=== PATIENT | female | born 1985 | race Caucasian/White ===

== ENCOUNTER 2020-11-08 11:37 | Emergency (ER) | payer OTHER, SELFPAY ==
[2020-11-08 11:46] VITALS: BP 115/78; PULSE 110; RESP 18; TEMP 36.7; O2SAT 96
--- NOTE | 2020-11-08 11:52 | W.ED.GENAD ---
Discharge Plan Disposition Patient Disposition: HOME Condition: Improving Discharge Details Clinical Impression: Pyelonephritis Primary Care Provider: None,None ED Provider: Zarina Mirza Home Meds and New Rx's Prescriptions: New cephalexin [Keflex] 500 mg capsule 500 mg PO BID 10 Days Qty: 20 RF: 0 Discharge Instructions Instructions: Urinary Tract Infection in Women (ED) Additional Instructions: Drink plenty of fluids and get plenty of rest. Take the antibiotics until finished. Follow-up with your primary care doctor in 1 week. Return to the emergency department with any worsening or new concerning symptoms. Stand Alone Forms: Work Release Discharge Data Discharge Date/Time-TO BE ENTERED AT DEPARTURE: 11/08/20 14:34 Discharge Physician: Zarina Mirza Medical Decision Making 35-year-old female with UTI symptoms for the past few days and right lower quadrant abdominal pain today. Urinalysis obtained on arrival and is positive for nitrites, few bacteria, 5-10 WBCs but many epithelial cells and appears contaminated. Will obtain another sample. Differential diagnosis includes UTI, pyelonephritis, kidney stone, ovarian cyst. Will place an IV, bolus IV fluids, screening labs, CT renal colic and give a dose of Toradol and Zofran and reassess. Labs and imaging reviewed. White blood cell count elevated at 17. Mild elevation of LFTs, may be due to daily alcohol use. Lipase negative. CT reviewed and notes mild dilatation of the right collecting system and right ureter. The right kidney is edematous Mild Carmen ureteral stranding However no ureteral calculus. The findings could be due to a recently passed stone, a noncalcified stone or clot or soft tissue process in the right ureter, or an infectious/inflammatory process of the right collecting system. Presentation appears most likely consistent with pyelonephritis. Patient reassessed and she feels much better. She was given a dose of Keflex here and prescription for home. Advised to follow up with the primary care doctor for re-evaluation. Usual and customary return precautions given prior to discharge. Medical Records Medical records reviewed: Yes I reviewed the patient's medical records. Imaging Data Radiologic Study: Radiologist's impression: CT Abdomen And Pelvis Without Contrast Exam date and time: 11/08/2020 1:28 PM Age: 35 years old Clinical indication: Abdominal pain; Acute; Patient HX: Rlq abd pain, R/O kidney stone, pyelonephritis TECHNIQUE: Imaging protocol: Computed tomography of the abdomen and pelvis without contrast. Radiation optimization: All CT scans at this facility use at least one of these dose optimization techniques: automated exposure control; mA and/or kV adjustment per patient size (includes targeted exams where dose is matched to clinical indication); or iterative reconstruction. COMPARISON: No relevant prior studies available. FINDINGS: Lungs: Right basilar atelectasis Liver: Normal. No mass. Gallbladder and bile ducts: Normal. No calcified stones. No ductal dilation. Pancreas: Normal. No ductal dilation. Spleen: Normal. No splenomegaly. Adrenal glands: Normal. No mass. Kidneys and ureters: There is mild dilatation of the right collecting system and right ureter. The right kidney is edematous Mild Carmen ureteral stranding However no ureteral calculus.. Stomach and bowel: Unremarkable. No obstruction. No mucosal thickening. Appendix: No evidence of appendicitis. Intraperitoneal space: Mild amount of free fluid in the pelvis Vasculature: Unremarkable. No abdominal aortic aneurysm. Lymph nodes: Unremarkable. No enlarged lymph nodes. Urinary bladder: Unremarkable as visualized. Reproductive: Unremarkable as visualized. Bones/joints: Unremarkable. No acute fracture. Soft tissues: Unremarkable. IMPRESSION: There is mild dilatation of the right collecting system and right ureter. The right kidney is edematous Mild Carmen ureteral stranding However no ureteral calculus. The findings could be due to a recently passed stone, a noncalcified stone or clot or soft tissue process in the right ureter, or an infectious/inflammatory process of the right collecting system. Lab Data Lab results reviewed: Yes I reviewed the patient's lab results. Labs: 11/08/20 12:10 Urine - Reflex from Ua Urine Culture - Preliminary Escherichia coli Laboratory Tests Range/Units 11/08/20 11/08/20 11/08/20 12:10 12:25 12:25 WBC (4.4-10.8) 10^3/uL 17.12 H RBC (3.93-5.22) 10^6/uL 4.78 Hgb (11.2-15.7) g/dL 14.7 Hct (36.0-46.0) % 43.7 MCV (80-95) fL 91.4 MCH (27.0-33.0) pg 30.8 MCHC (32.0-36.0) % 33.6 RDW (11.7-14.6) % 13.2 Plt Count (130-400) 10^3/uL 390 MPV (8.0-11.0) fL 9.2 Immature Gran % 0.5 Neutrophils % 87.5 Lymphocytes % 6.7 Monocytes % 5.0 Eosinophils % 0.1 Basophils % 0.2 Nucleated RBC % % 0 Absolute Neutrophils (1.2-6.7) 10^3/uL 14.98 H Absolute Lymphocytes (1.2-3.4) 10^3/uL 1.15 L Absolute Monocytes (0.1-0.8) 10^3/uL 0.86 H Absolute Eosinophils (0.0-0.7) 10^3/uL 0.02 Absolute Basophils (0.0-0.2) 10^3/uL 0.03 Sodium (136-145) mmol/L 132 L Potassium (3.5-5.1) mmol/L 3.5 Chloride (98-107) mmol/L 97 L Carbon Dioxide (21.0-32.0) mmol/L 24.3 Anion Gap (3-11) mmol/L 10.7 BUN (7-18) mg/dL 10 Creatinine (0.55-1.02) mg/dL 0.9 Estimated GFR/1.73 m2 (mL/min/1.73m2) >= 60.00 Glucose (74-106) mg/dL 96 Calcium (8.5-10.1) mg/dL 9.2 Total Bilirubin (0.2-1.0) mg/dL 0.9 AST (15-37) U/L 53 H ALT (14-59) U/L 74 H Alkaline Phosphatase (46-116) U/L 155 H Total Protein (6.4-8.2) g/dL 8.4 H Albumin (3.4-5.0) g/dL 4.0 Urine Color (Yellow) Yellow Urine Clarity (Clear) Sl cloudy Urine pH (5-8) 6.0 Ur Specific [place] (1.005-1.025) 1.020 Urine Protein (Negative) mg/dL 100 H Urine Ketones (Negative) mg/dL 80 H Urine Blood (Negative) Moderate H Urine Nitrite (Negative) Positive H Urine Bilirubin (Negative) Negative Urine Urobilinogen (Up TO 0.2) EU/dL 1.0 H Ur Leukocyte Esterase (Negative) Moderate H Urine RBC (0-2) HPF 10-20 H Urine WBC (0-5) HPF 10-20 H Ur Epithelial Cells (Negative) HPF Few Urine Crystals (Negative) HPF Negative Urine Bacteria (Negative) HPF Many Urine Casts (Negative) LPF Negative Urine Mucus (Negative) Trace Urine Other (Negative) Negative Ur Culture Indicated? Yes Urine Glucose (Negative) mg/dL Negative HPI General Mode of arrival: ambulatory. Date/Time Provider Initiated Documentation: 11/08/20 11:38. Limitations to Documentation: no limitations. Information obtained by: patient. HPI Narrative: Patient is a 35-year-old female with a history of appendectomy who presents for UTI symptoms for the past few days and right lower quadrant abdominal pain today. Patient states she has had dysuria, urinary frequency, urgency for the past few days for which she used Monistat at home without relief and then developed intermittent sharp right lower quadrant abdominal pain today. She states the pain at worst is 5/10. She admits to nausea and vomiting x1 today. She denies any known fever, chills or back pain. She denies any chance of at this time. She denies any vaginal discharge. Related Data Home Medications Medication Instructions Recorded Confirmed cephalexin [Keflex] 500 mg PO BID 10 Days #20 cap 11/08/20 Previous Rx's Medication Instructions Recorded cephalexin [Keflex] 500 mg PO BID 10 Days #20 cap 11/08/20 Allergies Allergy/AdvReac Type Severity Reaction Status Date / Time No Known Allergies Allergy Unverified 11/08/20 11:53 General Stated Complaint: Abd Prob POLO: 3 Review of Systems All systems reviewed & are unremarkable except as noted in HPI and below Constitutional Constitutional: Reports as per HPI, Denies chills and Denies fever(s) Eyes Eyes: Denies blurry vision ENT Ears, Nose, Mouth, and Throat: Denies dizziness, Denies sore throat and Denies throat swelling Cardiovascular Cardiovascular: Denies chest pain and Denies dyspnea Respiratory Respiratory: Denies cough and Denies dyspnea Gastrointestinal Gastrointestinal: Reports abdominal pain, Denies diarrhea and Denies vomiting Genitourinary Genitourinary: Denies hematuria and Denies dysuria Musculoskeletal Musculoskeletal: Denies back pain and Denies numbness Integumentary/Breasts Skin/Breast: Denies lesions and Denies rash Neurologic Neurologic: Denies dizziness, Denies localized weakness and Denies numbness Allergic/Immunologic Allergic/Immunologic: Denies throat swelling [facility] Medical History (Updated 11/08/20 @ 14:26 by Zarina Mirza DO) No significant past medical history Surgical History (Updated 11/08/20 @ 13:05 by Zarina Mirza DO) History of appendectomy Social History Smoking/Tobacco Use Status: Current every day Smoking risk assessment performed?: Yes Alcohol Intake: current Alcohol Intake frequency: 3 or more drinks per day Drug use: Occasionally Substance use type: marijuana Do you feel safe at home: Yes Exam Const General: cooperative, healthy appearing and no acute distress HENMT Head: normal to inspection Face and sinus: normal facial exam Eyes General: appearance normal, both eyes and all related structures EOM: EOM intact bilaterally Neck Neck: normal visual inspection and No submandibular swelling Lymphatic: no lymphadenopathy noted Chest Chest: normal inspection of the chest and no tenderness Resp Effort & Inspection: normal respiratory effort and able to speak in complete sentences Auscultation: clear to auscultation bilaterally Cardio Rate: regular rate Rhythm: regular rhythm GI Inspection: normal to inspection and obesity Palpation: soft, not firm, not rigid and tender in the LLQ, in the RLQ and suprapubicly Auscultation: normal bowel sounds Back/Spine/Pelvis Back: no CVA tenderness Thoracic/Lumbar Spine: thoracic and lumbar spine normal to inspection Skin General skin exam: no rashes or lesions noted Neuro General: patient alert, patient awake and patient oriented x3 Cognition: normal cognition Speech: speech normal Motor: muscle tone normal throughout Sensory Exam: no sensory deficits noted Extrem General: normal to inspection, full ROM, capillary refill normal, no calf tenderness bilaterally and no edema Psych Appearance: grossly normal Mental Status: mental status grossly normal Speech and Movement: speech and movement normal Affect: normal affect Course Vital Signs Vital signs: Vital Signs Temperature 98.1 F 11/08/20 11:46 Pulse 110 H 11/08/20 11:46 Respiratory Rate 18 11/08/20 11:46 Blood Pressure 115/78 11/08/20 11:46 Pulse Oximetry 96 11/08/20 11:46 Temperature 98.1 F 11/08/20 11:46 Temperature Source Skin 11/08/20 11:46 Pulse 110 H 11/08/20 11:46 Respiratory Rate 18 11/08/20 11:46 Blood Pressure 115/78 11/08/20 11:46 Blood Pressure Position Sitting 11/08/20 11:46 Pulse Oximetry 96 11/08/20 11:46 Oxygen Delivery Method Room Air 11/08/20 11:46 Oxygen Flow Rate 0 11/08/20 11:46 Pain Level 3 11/08/20 11:46
[2020-11-08 12:18] LABS: Bilirubin Negative (Negative); Blood Moderate (Negative); Clarity Sl Cloudy (Clear); Glucose Negative (Negative); Ketones 80 mg/dL (Negative); Leukocyte Esterase Moderate (Negative); Nitrite Positive (Negative)
[2020-11-08] MEDS: Normal Saline 1,000 ML 1000 ML IV (12:23)
[2020-11-08 12:28] LABS: Casts Negative LPF (Negative); Crystals Negative HPF (Negative); Mucus Trace (Negative); Other Cells Negative (Negative)
[2020-11-08 12:39] LABS: Abs Immature Grans 0.08 10^3/uL (0.0-0.06); Absolute Monocyte Count 0.86 10^3/uL (0.1-0.8); Basophils % 0.2; Eosinophils % 0.1; HCT 43.7 % (36.0-46.0); HGB 14.7 g/dL (11.2-15.7); Immature Grans % 0.5; Lymphocytes % 6.7; MCH 30.8 pg (27.0-33.0); MCHC 33.6 % (32.0-36.0); MCV 91.4 fL (80-95); MPV 9.2 fL (8.0-11.0); Neutrophils % 87.5; Nucleated RBC 0 %; Platelet Count 390 10^3/uL (130-400); RBC 4.78 10^6/uL (3.93-5.22); RDW 13.2 % (11.7-14.6); RDW-SD 44.4 fL; WBC 17.12 10^3/uL (4.4-10.8)
[2020-11-08 12:42] LABS: Absolute Basophil Count 0.03 10^3/uL (0.0-0.2); Absolute Eosinophil Count 0.02 10^3/uL (0.0-0.7); Absolute Lymphocyte Count 1.15 10^3/uL (1.2-3.4); Absolute Neutrophil Count 14.98 10^3/uL (1.2-6.7)
[2020-11-08 12:47] LABS: ALT 74 U/L (14-59); AST 53 U/L (15-37); Alkaline Phosphatase 155 U/L (46-116); Anion Gap 10.7 mmol/L (3-11); BUN 10 mg/dL (7-18); Bilirubin, Total 0.9 mg/dL (0.2-1.0); CO2 24.3 mmol/L (21.0-32.0); CREATININE 0.9 mg/dL (0.55-1.02); Calcium 9.2 mg/dL (8.5-10.1); Chloride 97 mmol/L (98-107); Glucose 96 mg/dL (74-106); Potassium 3.5 mmol/L (3.5-5.1); Sodium 132 mmol/L (136-145); Total Protein 8.4 g/dL (6.4-8.2)
[2020-11-08] MEDS: Ketorolac 30 MG/ML VIAL IVP (12:53)
[2020-11-08] MEDS: Ondansetron 4 MG/2 ML VIAL IVP (12:53)
[2020-11-08 13:29] LABS: Epithelial Cells Few HPF (Negative)
[2020-11-08 13:30] LABS: Bacteria Many HPF (Negative); C & S Indicated? Yes
--- NOTE | 2020-11-08 13:32 | DI.CT_ITS ---
EXAM: CT RENAL COLIC WO CLINICAL HISTORY: RLQ abd pain, r/o kidney stone, pyelonephritis. TECHNIQUE: Imaging Protocol: Axial computed tomography images with coronal and sagittal reformatted images were created and reviewed. CONTRAST MATERIAL: Noncontrast COMPARISON: No exams were available for comparison FINDINGS: ABDOMEN: Lung Bases: Mild right basilar atelectasis. Liver: Normal attenuation. No measurable mass. Gallbladder and biliary tract: No radiodense calculus or dilation. Pancreas: Normal density, no calcifications or inflammatory process. Spleen: Normal. Kidneys: The right kidney is mildly edematous. There is mild dilatation of the right collecting syst em. There is mild periureteral stranding. No obstructing stone is identified. The left kidney is u nremarkable. No nephrolithiasis.. No masses seen. Adrenal glands: No masses seen. Abdominal Aorta: Abdominal portion non-dilated. PELVIS: Bladder: Symmetric distention, no gross wall thickening. Bowel: No obstruction or bowel wall thickening. Peritoneal cavity: Small amount pelvic fluid. Bones: Within normal limits. Reproductive: Unremarkable. IMPRESSION: Mild dilatation of the right renal collecting system without evidence of obstructing stone. The find ings could be secondary to a recently passed stone. Mildly nephritis is also a consideration. RADIATION DOSE DELIVERED: 999.33mGy.cm Total DLP DATA REPOSITORY: All CT scans at this facility are submitted to the National Radiology Data Registry (NRDR) Dose Index Registry (DIR) with the [employer] (ACR). RADIATION OPTIMIZATION: All CT scans at this facility use at least one of these dose optimization te chniques: automated exposure control; mA and/or kV adjustment per patient size (includes targeted exa ms where dose is matched to clinical indication); or iterative reconstruction.
--- NOTE | 2020-11-08 14:05 | DI.VRAD_ITS ---
PROCEDURE INFORMATION: Exam: CT Abdomen And Pelvis Without Contrast Exam date and time: 11/08/2020 1:28 PM Age: 35 years old Clinical indication: Abdominal pain; Acute; Patient HX: Rlq abd pain, R/O kidney stone, pyelonephritis TECHNIQUE: Imaging protocol: Computed tomography of the abdomen and pelvis without contrast. Radiation optimization: All CT scans at this facility use at least one of these dose optimization techniques: automated exposure control; mA and/or kV adjustment per patient size (includes targeted exams where dose is matched to clinical indication); or iterative reconstruction. COMPARISON: No relevant prior studies available. FINDINGS: Lungs: Right basilar atelectasis Liver: Normal. No mass. Gallbladder and bile ducts: Normal. No calcified stones. No ductal dilation. Pancreas: Normal. No ductal dilation. Spleen: Normal. No splenomegaly. Adrenal glands: Normal. No mass. Kidneys and ureters: There is mild dilatation of the right collecting system and right ureter. The right kidney is edematous Mild Carmen ureteral stranding However no ureteral calculus.. Stomach and bowel: Unremarkable. No obstruction. No mucosal thickening. Appendix: No evidence of appendicitis. Intraperitoneal space: Mild amount of free fluid in the pelvis Vasculature: Unremarkable. No abdominal aortic aneurysm. Lymph nodes: Unremarkable. No enlarged lymph nodes. Urinary bladder: Unremarkable as visualized. Reproductive: Unremarkable as visualized. Bones/joints: Unremarkable. No acute fracture. Soft tissues: Unremarkable. IMPRESSION: There is mild dilatation of the right collecting system and right ureter. The right kidney is edematous Mild Carmen ureteral stranding However no ureteral calculus. The findings could be due to a recently passed stone, a noncalcified stone or clot or soft tissue process in the right ureter, or an infectious/inflammatory process of the right collecting system. Dictated and Authenticated by: Iraida Espinosa MD. Ordering:OBI Srinivasan MD
[2020-11-08] MEDS: Cephalexin 500 MG CAP PO (14:26)
[2020-11-08] MEDS: Cephalexin 500 MG CAP, 4 CAPS/BTL PO (14:26)
== END 2020-11-08 14:34 | disposition home or self-care (01) ==
PROVIDERS: Emergency Provider Physician Assistant
DX: N10 Acute pyelonephritis (principal); B96.20 Unspecified Escherichia coli [E. coli] as the cause of diseases classified elsewhere
CPT/HCPCS: 36415; 80053; 87077; 96361; 96374; 96375; 99284; 74176; 81003; 81015; 85025; 87086; 87186; J1885; J2405

== ENCOUNTER 2020-12-10 01:53 | Emergency (ER) | payer OTHER, SELFPAY ==
[2020-12-10] VITALS (22 sets, daily range): BP systolic 102–121; BP diastolic 59–75; PULSE 87–124; RESP 18; TEMP 36.4; O2SAT 90–95
--- NOTE | 2020-12-10 02:38 | W.ED.GENAD ---
Discharge Plan Disposition Patient Disposition: HOME Condition: Good Discharge Details Clinical Impression: Pyelonephritis Primary Care Provider: None,None ED Provider: Matt Carmen Meds and New Rx's Prescriptions: New ciprofloxacin HCl 500 mg tablet 500 mg PO BID Qty: 14 RF: 0 Discontinued Back and Body Pain Reliever 500-32.5 mg Tablet 2 tab PO DAILY PRNRF: 0 Discharge Instructions Instructions: Urinary Tract Infection in Women (ED) Additional Instructions: You do have another kidney infection. Because of the recent antibiotic use and evidence of infection within the kidney will use a fluoroquinolone at this time. We will also have you follow-up with a PCP in care management will work with you to help establish one. Because of the 2 recent infection and the possibility of passing stones I will refer you to urology for evaluation by them. Take antibiotic as directed. Stay hydrated. Use ibuprofen or acetaminophen for pain. Return to ED for spiking high fever, persistent vomiting, worsening pain, altered mental status. Referrals: Care Management [Provider Group] [facility] [Provider Group] Medical Decision Making I reviewed patient's previous visit. She had a CT scan that showed right sided hydroureter with stranding and edema of the right kidney. Consider recently passed stone. Found to have evidence of UTI and treated with cephalexin. Urine culture is did grow pansensitive E. coli. Tonight patient presenting with left-sided symptoms. No fever or chills. Left flank tenderness and CVAT. Will rescan tonight given possibility of stone 1 month ago. Urine test is negative. IV established and fluids started. Toradol given for pain. Laboratory studies ordered. Patient developed some vomiting after scan. Treated with Zofran. Laboratory studies with elevated white count. Normal kidney function. Urine with moderate blood but on micro nothing but sheets of white cells seen. CT scan tonight shows mild left hydroureteral nephrosis. Again consider passage of recent stone. Patient much more comfortable after medications. Given recent use of antibiotics and given recurrent pyelonephritis. Now involving the opposite side will treat with fluoroquinolone. EKG was obtained and shows normal QT interval. Discussed side effect including Achilles tendon rupture with patient. Patient does not have primary care. We will have care management work with patient in establishing such. Should have follow-up next week to see how she is doing. We will also refer to urology given questionable stone passage and 2 episodes of pyelonephritis. Return to ED if spiking high fever, persistent vomiting, worsening pain, mental status changes. Medical Records Medical records reviewed: Yes I reviewed the patient's medical records. Lab Data Lab results reviewed: Yes I reviewed the patient's lab results. ECG Data Attestation: I personally reviewed and interpreted this ECG (s) as follows: Prior ECG tracings: not available for review Interpretation: see EKG HPI General Mode of arrival: ambulatory. Date/Time Provider Initiated Documentation: 12/10/20 02:37. Limitations to Documentation: no limitations. Information obtained by: patient and RN notes reviewed. HPI Narrative: Patient reports to ED with worsening left-sided abdominal and back pain. Patient reports not feeling well for a couple of days. She has had increasing left-sided abdominal pain that sometimes wraps around to the back. She has had some nausea and vomiting. She has no diarrhea. She denies any urinary symptoms. She denies any fever. Pain much worse over the last few hours. Reports having similar pain on the right side about a month ago. Denies any pelvic pain, vaginal discharge. Is having her menstrual period at this time. Denies cough, shortness of breath, chest pain. Related Data Home Medications Medication Instructions Recorded Confirmed ciprofloxacin HCl 500 mg PO BID #14 tab 12/10/20 Previous Rx's Medication Instructions Recorded ciprofloxacin HCl 500 mg PO BID #14 tab 12/10/20 Allergies Allergy/AdvReac Type Severity Reaction Status Date / Time No Known Allergies Allergy Unverified 12/10/20 02:13 General Stated Complaint: Abd Prob POLO: 3 Review of Systems Narrative: As documented in HPI otherwise negative as below. Const: no fever, chills, weakness Resp: no cough, SOB, pleuritic pain CV: no CP, diaphoresis, edema, syncope GI: no diarrhea Neuro: no headache, numbness, focal weakness, confusion [facility] Medical History No significant past medical history Surgical History History of appendectomy Social History Smoking/Tobacco Use Status: Current every day Tobacco Type: cigarettes Smoking risk assessment performed?: Yes Alcohol Intake: current Alcohol Intake frequency: 0-2 drinks per day Drug use: Occasionally Substance use type: marijuana Do you feel safe at home: Yes Exam Narrative Exam Narrative: Const: WDWN female in NAD. HEENT: NC/AT. Normal facial exam. Eyes: Normal conjunctiva and sclera. Neck: Supple. Trachea midline. Lungs: Normal respiratory effort. Lungs are clear. Cor: RRR without murmur/gallop. Good radial pulses. GI: Soft and ND. Tender in left flank area but not true abdomen tenderness. Back: Left CVAT Neuro: A+O x 3. Normal speech, mentation, gait. Cranial nerves II - XII grossly intact. No gross motor or sensory deficit. Ext: No C/C/E. Skin: Warm and dry without rash. Course Vital Signs Vital signs: Vital Signs Temperature 97.5 F L 12/10/20 02:04 Pulse 124 H 12/10/20 02:04 Respiratory Rate 18 12/10/20 02:04 Blood Pressure 121/75 12/10/20 02:04 Pulse Oximetry 95 12/10/20 02:04 Temperature 97.5 F L 12/10/20 02:04 Temperature Source Skin 12/10/20 02:04 Pulse 124 H 12/10/20 02:04 Respiratory Rate 18 12/10/20 02:04 Respiratory Effort Non-Labored 12/10/20 02:10 Blood Pressure 121/75 12/10/20 02:04 Blood Pressure Position Sitting 12/10/20 02:04 Pulse Oximetry 95 12/10/20 02:04 Oxygen Delivery Method Room Air 12/10/20 02:04 Oxygen Flow Rate 0 12/10/20 02:04 Pain Level 7 12/10/20 02:11
[2020-12-10 02:58] LABS: Bilirubin Negative (Negative); Blood Moderate (Negative); Clarity Sl Cloudy (Clear); Glucose Negative (Negative); Ketones Trace mg/dL (Negative); Leukocyte Esterase Small (Negative); Nitrite Negative (Negative); pH 6.5 (5-8)
[2020-12-10 03:08] LABS: WBC >50 HPF (0-5)
[2020-12-10 03:09] LABS: C & S Indicated? Yes
--- NOTE | 2020-12-10 03:14 | DI.CT_ITS ---
EXAM: CT RENAL COLIC WO CLINICAL HISTORY: left flank pain. TECHNIQUE: Imaging Protocol: Axial computed tomography images with coronal and sagittal reformatted images were created and reviewed. COMPARISON: CT CT RENAL COLIC WO from 11/08/2020 FINDINGS: ABDOMEN: Lung Bases: Normal where visualized. Liver: Normal density. No measurable mass. Gallbladder and biliary tract: No radiodense calculus or biliary ductal dilation. Pancreas: Normal density, no abnormal calcifications or inflammatory process. Spleen: Normal. Kidneys: Normal size, contour and axis.No radiodense stone is identified. There is mild dilatation o f the left renal collecting system and Carmen ureteral inflammation. No masses seen. Adrenal glands: No mass is seen. Lymph nodes: Stable mildly enlarged inguinal lymph nodes. Abdominal Aorta: Abdominal portion non-dilated. PELVIS: Bladder:Symmetric distention, no gross wall thickening. Bowel: No obstruction or bowel wall thickening. No evidence of appendicitis. Peritoneal cavity: There is a trace amount of fluid in the cul-de-sac which may be physiologic. No f ocal fluid collection is seen. No free air. Reproductive organs: Within normal limits. Bones: Within normal limits. Soft Tissues: Within normal limits. IMPRESSION: Mild dilatation of the left renal collecting system and periureteral stranding. No radiopaque stone is seen. This may represent a recently passed stone. Noncalcified stone, inflammation or infection cannot be excluded.Please correlate clinically. RADIATION DOSE DELIVERED: 909.84mGy.cm Total DLP DATA REPOSITORY: All CT scans at this facility are submitted to the National Radiology Data Registry (NRDR) Dose Index Registry (DIR) with the [employer] (ACR). RADIATION OPTIMIZATION: All CT scans at this facility use at least one of these dose optimization te chniques: automated exposure control; mA and/or kV adjustment per patient size (includes targeted exa ms where dose is matched to clinical indication); or iterative reconstruction.
[2020-12-10] MEDS: Lactated Ringers 1,000 ML 1000 ML IV (03:20)
[2020-12-10] MEDS: Ketorolac 30 MG/ML VIAL IVP (03:30)
[2020-12-10 03:35] LABS: Absolute Basophil Count 0.05 10^3/uL (0.0-0.2); Absolute Eosinophil Count 0.02 10^3/uL (0.0-0.7); Basophils % 0.3; Eosinophils % 0.1; HCT 40.2 % (36.0-46.0); HGB 13.7 g/dL (11.2-15.7); Immature Grans % 0.6; Lymphocytes % 8.8; MCHC 34.1 % (32.0-36.0); Monocytes % 8.2; Nucleated RBC 0 %; Platelet Count 361 10^3/uL (130-400); RBC 4.42 10^6/uL (3.93-5.22); RDW 13.4 % (11.7-14.6); RDW-SD 45.4 fL; WBC 17.78 10^3/uL (4.4-10.8)
[2020-12-10 03:36] LABS: Absolute Lymphocyte Count 1.56 10^3/uL (1.2-3.4); Absolute Monocyte Count 1.46 10^3/uL (0.1-0.8); Absolute Neutrophil Count 14.58 10^3/uL (1.2-6.7)
--- NOTE | 2020-12-10 03:45 | RT.EKG_ITS ---
APPROVED REPORT Exam: Resting ECG Patient Location: E HR:98 bpm ECG Measurements Heart Rate 98 AXIS [place] 180 P 16 QRSd 90 QRS 46 QT 380 T 8 QTc 484 Conclusion Sinus rhythm...normal P axis, V-rate 60- 99 Normal [place] Normal Interval Nonspecific ST-T changes
--- NOTE | 2020-12-10 03:46 | DI.VRAD_ITS ---
PROCEDURE INFORMATION: Exam: CT Abdomen And Pelvis Without Contrast Exam date and time: 12/10/2020 2:48 AM Age: 35 years old Clinical indication: Abdominal pain; Flank; Left; Prior surgery; Surgery date: 6+ months; Surgery type: Appendectomy TECHNIQUE: Imaging protocol: Computed tomography of the abdomen and pelvis without contrast. Radiation optimization: All CT scans at this facility use at least one of these dose optimization techniques: automated exposure control; mA and/or kV adjustment per patient size (includes targeted exams where dose is matched to clinical indication); or iterative reconstruction. COMPARISON: CT RENAL COLIC WO 11/08/2020 1:31 PM FINDINGS: Liver: Normal. No mass. Gallbladder and bile ducts: Normal. No calcified stones. No ductal dilation. Pancreas: Normal. No ductal dilation. Spleen: Normal. No splenomegaly. Adrenal glands: Normal. No mass. Kidneys and ureters: Mild left hydroureteronephrosis. No distal calculi Stomach and bowel: Unremarkable. No obstruction. No mucosal thickening. Appendix: Prior appendectomy Intraperitoneal space: Unremarkable. No free air. No significant fluid collection. Vasculature: Unremarkable. No abdominal aortic aneurysm. Lymph nodes: Unremarkable. No enlarged lymph nodes. Urinary bladder: Unremarkable as visualized. Reproductive: Unremarkable as visualized. Bones/joints: Unremarkable. No acute fracture. Soft tissues: Unremarkable. IMPRESSION: Presumed recently passed left renal/ureteral calculus with mild residual left hydroureteronephrosis Dictated and Authenticated by: Levi Sesay MD. Ordering:KATHE Gutierrez MD
[2020-12-10 03:56] LABS: ALT 47 U/L (14-59); AST 21 U/L (15-37); Albumin 3.6 g/dL (3.4-5.0); Alkaline Phosphatase 122 U/L (46-116); Anion Gap 12.2 mmol/L (3-11); BUN 9 mg/dL (7-18); Bilirubin, Total 0.6 mg/dL (0.2-1.0); CO2 22.8 mmol/L (21.0-32.0); CREATININE 0.8 mg/dL (0.55-1.02); Calcium 8.4 mg/dL (8.5-10.1); Chloride 99 mmol/L (98-107); Glucose 107 mg/dL (74-106); Lipase 71 U/L (73-393); Potassium 3.6 mmol/L (3.5-5.1); Sodium 134 mmol/L (136-145); Total Protein 7.7 g/dL (6.4-8.2)
[2020-12-10] MEDS: Ondansetron 4 MG/2 ML VIAL (04:00)
[2020-12-10] MEDS: CIPROFLOXACIN 400 MG/200 ML BAG 200 MG IVPB (04:14)
--- NOTE | 2020-12-10 05:34 | NUR.NOTE ---
Nursing Note:Patient continues to sleep. See VS flow sheet.
--- NOTE | 2020-12-10 06:21 | NUR.NOTE ---
Nursing Note: Referral for pcp/follow up faxed to care management 12/10/20 @ [id number] libl
--- NOTE | 2020-12-10 06:22 | NUR.NOTE ---
Nursing Note: referral to urology faxed 12/10/20 @[phone] libl
--- NOTE | 2020-12-11 10:17 | CMPROGNOTE_ITS ---
- If Service Date Differs Date of service: 12/11/20 Time of Service: 10:17 Care Management Progress Note Molly presents to the ED on 12/10/2020 for pyelonephritis. At the request of ED provider, KILLIAN coordinates a referral to Lyn Wilde of [facility], on-call provider, to assist Molly in obtaining a follow up appointment and in establishing care with a PCP.
== END 2020-12-10 05:44 | disposition home or self-care (01) ==
PROVIDERS: Emergency Provider Emergency Medicine
DX: N10 Acute pyelonephritis (principal); N13.39 Other hydronephrosis; N13.4 Hydroureter
CPT/HCPCS: 36415; 80053; 81025; 83690; 87077; 93005; 96361; 96365; 96375; 99285; 74176; 81003; 81015; 85025; 87086; 87186; 93010; J0744; J1885; J2405

== ENCOUNTER 2020-12-12 00:25 | Observation (INO) | payer OTHER, SELFPAY ==
--- NOTE | 2020-12-12 00:33 | ED.GENADUL_ITS ---
Discharge Plan Disposition Patient Disposition: [facility] INPATIENT Condition: Fair Discharge Details Clinical Impression: Pyelonephritis Primary Care Provider: None,None ED Provider: Matt Carmen [place] Meds and New Rx's Prescriptions: No Action ciprofloxacin HCl 500 mg tablet 500 mg PO BID Qty: 14 RF: 0 Medical Decision Making Patient returns with recurrent pain and vomiting after being seen last night and treated for pyelonephritis. IV established and repeat laboratory studies ordered. Fluids, ceftriaxone, Toradol, Zofran ordered. No repeat CT scan tonight as she has had 2 within the last month/month and a half. Patient better after Toradol and Zofran. White count remains elevated at 17,000. Chemistries show low potassium and bicarb and elevated anion gap. C hemistries last night were okay. Given lack of response and continued pain and vomiting Case discussed with hospitalist for admission. We will continue fluids and will replete potassium. Consider ultrasound in the morning to be sure hydro not getting worse. Medical Records Medical records reviewed: Yes I reviewed the patient's medical records. Lab Data Lab results reviewed: Yes I reviewed the patient's lab results. HPI General Mode of arrival: ambulatory . Date/Time Provider Initiated Documentation: 12/12/20 00:33 . Limitations to Documentation: no limitations . Information obtained by: patient, RN notes reviewed and old records reviewed . HPI Narrative: Patient returns tonight with continued left side flank and abdominal pain and vomiting. Seen by me about [address] scan last night showed mild hydronephrosis and hydroureter but no evidence of stone. Urine infected and patient started on ciprofloxacin. She was comfortable when she left last night. Throughout the day she has had increasing pain and vomiting. She is not sure whether the ciprofloxacin is staying down. She did not take anything for the pain. Comes in tonight because of pain and vomiting. She denies any fevers. She continues to urinate without problem. Related Data Home Medications Medication Instructions Recorded Confirmed ciprofloxacin HCl 500 mg PO BID #14 tab 12/10/20 12/12/20 Previous Rx's Medication Instructions Recorded ciprofloxacin HCl 500 mg PO BID #14 tab 12/10/20 Allergies Allergy/AdvReac Type Severity Reaction Status Date / Time No Known Allergies Allergy Unverified 12/10/20 02:13 General POLO: 3 Review of Systems Narrative: 07/22 Review of Systems completed and is negative except as stated above in HPI (Systems reviewed: Const, Eyes, ENT, Resp, CV, GI, , MSK, Skin, Neuro) [facility] Medical History No significant past medical history Surgical History History of appendectomy Social History Smoking/Tobacco Use Status: Current every day Tobacco Type: cigarettes Smoking risk assessment performed?: Yes Alcohol Intake: current Alcohol Intake frequency: 0-2 drinks per day Drug use: Occasionally Substance use type: marijuana Do you feel safe at home: Yes Do you feel safe in your relationship?: Yes Exam Narrative Exam Narrative: Const: WDWN female crying. HEENT: NC/AT. Normal facial exam. Eyes: Normal conjunctiva and sclera. Neck: Supple. Trachea midline. Lungs: Normal respiratory effort. Cor: Good radial pulses. GI: Soft and ND. Tender left side/flank. No guarding. Neuro: A+O x 3. Normal speech, mentation, gait. Cranial nerves II - XII grossly intact. No gross motor or sensory deficit. Ext: No C/C/E. Skin: Warm and dry without rash.
[2020-12-12 00:34] VITALS: BP 103/69; PULSE 96; RESP 22; TEMP 36.2; O2SAT 98
[2020-12-12 00:39] VITALS: RESP 22
[2020-12-12] MEDS: Normal Saline 1,000 ML 1000 ML IV (01:00)
[2020-12-12 01:02] LABS: Abs Immature Grans 0.05 10^3/uL (0.0-0.06); Absolute Lymphocyte Count 2.84 10^3/uL (1.2-3.4); Absolute Monocyte Count 2.24 10^3/uL (0.1-0.8); Basophils % 0.4; Eosinophils % 0.4; HCT 40.4 % (36.0-46.0); HGB 13.7 g/dL (11.2-15.7); Immature Grans % 0.3; Lactate 1.7 mmol/L (0.6-1.4); Lymphocytes % 16.6; MCH 30.5 pg (27.0-33.0); MCHC 33.9 % (32.0-36.0); Monocytes % 13.1; Neutrophils % 69.2; Nucleated RBC 0 %; Platelet Count 386 10^3/uL (130-400); RBC 4.49 10^6/uL (3.93-5.22); RDW 13.3 % (11.7-14.6); RDW-SD 44.1 fL; WBC 17.09 10^3/uL (4.4-10.8)
[2020-12-12 01:06] LABS: Absolute Basophil Count 0.07 10^3/uL (0.0-0.2); Absolute Eosinophil Count 0.07 10^3/uL (0.0-0.7); Absolute Neutrophil Count 11.83 10^3/uL (1.2-6.7)
[2020-12-12] MEDS: Ondansetron 4 MG/2 ML VIAL IVP (01:09)
[2020-12-12 01:12] LABS: Anion Gap 16.3 mmol/L (3-11); BUN 7 mg/dL (7-18); CO2 20.7 mmol/L (21.0-32.0); Chloride 98 mmol/L (98-107); Glucose 104 mg/dL (74-106); Potassium 3.3 mmol/L (3.5-5.1); Sodium 135 mmol/L (136-145)
[2020-12-12] MEDS: Ketorolac 15 MG/ML VIAL 30 MG IVP (01:15)
[2020-12-12 01:18] LABS: Diff Comment Agrees w/ Instrument; RBC Morphology Normal
[2020-12-12] MEDS: cefTRIAXone 1 GM/50 ML BAG IVPB (01:26)
--- NOTE | 2020-12-12 02:00 | W.PM.HP.N ---
Date of service: 12/12/20 Time of Service: 02:00 Assessment and Plan Assessment and plan (1) Pyelonephritis: Status: Acute Assessment and plan: Pyelo. The question remains whether there may have been a stone, responsible for the hydro. Would advise re-image ion any case and will plan on U/S in AM. As to infection per se possible the Cipro may not have been absorbed due to vomiting but regardless Rocephin a good choice and will continue as is; sensitivities should be out soon and it is noted that she had solano-sensitive E coli in October of this year. Slight increase lactate and AG noted but clinically patient not appearing septic. In sum will continue antibiotics, IVF, and prn antiemetics and analgesics. U/S in AM. History of Present Illness History of Present Illness Chief Complaint: flank pain Narrative: 35 female here with 5 days of escalating left flank pain, radiation to LLQ, no progression or migration of pain, and associated vomiting. Seen one day [employer], CT shows mild left hydro, no stone. Pyuria noted, sent home on Cipro. Cx growing GNR, ID pending. Returns tonight with persistent pain and vomiting. In ER findings of note for persistent leukocytosis (17), slight increase lactate to 1.7, k 3.3 and HCO3 of 20.7 with AG 16. Given KCl, Toradol, Zofran nd Rocephin. States the nausea and pain have resolved. Due to recent CT she was not re-imaged tonight. Is admitted for further management. Review of Systems All systems reviewed & are unremarkable except as noted in HPI and below PFSH Medical History No significant past medical history Surgical History History of appendectomy Social History Smoking/Tobacco Use Status: Current every day Tobacco Type: cigarettes Smoking risk assessment performed?: Yes Alcohol Intake: current Alcohol Intake frequency: 0-2 drinks per day Drug use: Occasionally Substance use type: marijuana Do you feel safe at home: Yes Do you feel safe in your relationship?: Yes Meds Home Medications and Allergies Allergies Allergy/AdvReac Type Severity Reaction Status Date / Time No Known Allergies Allergy Unverified 12/10/20 02:13 Home Medications Medication Instructions Recorded Confirmed Type ciprofloxacin HCl 500 mg PO BID #14 tab 12/10/20 12/12/20 Rx Exam Narrative Exam Narrative: 103/69, 96, 36.2, 22, 98% RA. NAD, lying left semi-decubitus position. HEENT unremarkable; neck supple; lungs clear; heart RRR w/o MRG; negative CVAT; abdomen soft mild LLQ tenderness; extremities w/o edema; neuro Ox3, nonfocal Results Labs Result diagrams: 12/12/20 01:00 12/12/20 01:00 Labs: Laboratory Results - last 24 hr 12/12/20 12/12/20 12/12/20 01:00 01:00 01:00 WBC 17.09 H RBC 4.49 Hgb 13.7 Hct 40.4 MCV 90.0 MCH 30.5 MCHC 33.9 RDW 13.3 Plt Count 386 MPV 9.0 Immature Gran % 0.3 Neutrophils % 69.2 Lymphocytes % 16.6 Monocytes % 13.1 Eosinophils % 0.4 Basophils % 0.4 Nucleated RBC % 0 Absolute Neutrophils 11.83 H Absolute Lymphocytes 2.84 Absolute Monocytes 2.24 H Absolute Eosinophils 0.07 Absolute Basophils 0.07 RBC Morphology Normal VBG Lactate 1.7 H Sodium 135 L Potassium 3.3 L Chloride 98 Carbon Dioxide 20.7 L Anion Gap 16.3 H BUN 7 Creatinine 1.0 Estimated GFR/1.73 m2 >= 60.00 Glucose 104 Calcium 9.0 Last Vital Signs Temp 36.2 C L 12/12/20 00:34 Pulse 96 H 12/12/20 00:34 Resp 22 12/12/20 00:39 BP 103/69 12/12/20 00:34 Pulse Ox 98 12/12/20 00:34 COVID-19 Screening Have you, or household traveled for leisure in last 14 days?: No Had IN PERSON contact w/suspected or confirmed C-19 person: No
[2020-12-12 02:14] LABS: Source Nasal/Nares
[2020-12-12] MEDS: POTASSIUM CHLORIDE 10 MEQ/100 ML BAG 100 MEQ IVPB (02:14)
[2020-12-12 03:11] VITALS: BP 110/69; PULSE 74; RESP 17; TEMP 36.6; O2SAT 96
[2020-12-12 03:25] VITALS: BP 110/69; PULSE 74; RESP 17; TEMP 36.6; O2SAT 96
[2020-12-12] MEDS: POTASSIUM CHLORIDE/D5-0.9%NACL 1,000 ML 150 MEQ IV (04:42)
[2020-12-12] MEDS: Ibuprofen 600 MG TAB PO ×2 (05:58→11:39)
[2020-12-12 06:42] LABS: HCT 38.4 % (36.0-46.0); MCH 31.1 pg (27.0-33.0); MCHC 33.9 % (32.0-36.0); MCV 91.9 fL (80-95); MPV 9.3 fL (8.0-11.0); Platelet Count 391 10^3/uL (130-400); RBC 4.18 10^6/uL (3.93-5.22); RDW 13.3 % (11.7-14.6); RDW-SD 45.3 fL; WBC 13.63 10^3/uL (4.4-10.8)
[2020-12-12 06:49] LABS: Anion Gap 10.2 mmol/L (3-11); BUN 8 mg/dL (7-18); CO2 25.8 mmol/L (21.0-32.0); CREATININE 0.9 mg/dL (0.55-1.02); Calcium 8.7 mg/dL (8.5-10.1); Chloride 101 mmol/L (98-107); Glucose 106 mg/dL (74-106); Potassium 3.6 mmol/L (3.5-5.1); Sodium 137 mmol/L (136-145)
[2020-12-12 07:27] VITALS: BP 104/68; PULSE 79; RESP 17; TEMP 36.9; O2SAT 95
--- NOTE | 2020-12-12 08:09 | INITIAL_ITS ---
- If Service Date Differs Date of service: 12/12/20 Time of Service: 08:09 Care Management Initial Assess REASON FOR HOSPITALIZATION:: Pyelonephritis. PAST MEDICAL HISTORY/PAST SURGICAL HISTORY:: Medical History: No significant past medical history. Surgical History: Appendectomy. PREVIOUS FUNCTIONAL STATUS/SOCIAL/FAMILY SUPPORTS:: Molly is a 35 year old female who resides in [place] with her mother and older brother. Molly graduated from [employer] and works in [employer] at [employer]. She states she doesn't do much outside of work but does enjoy playing video games and watching Anime. Molly is independent in the community. She names her mom as a source of support for her. CURRENT FUNCTIONAL STATUS:: Molly is sitting up in bed watching television when CM comes to meet with her. She is pleasant and easily engages in conversation. She talks about being in excruciating pain prior to coming to the hospital. She is feeling much better today and is looking forward to returning home. ADVANCE DIRECTIVES:: None on file; patient declines form. Has patient been provided with info about the portal/API?: Yes Did the patient sign up for the portal?: Yes CODE STATUS:: Full Code INSURANCE COVERAGE / FINANCIAL ISSUES:: [employer] CURRENT HOME/COMMUNITY SERVICES/EQUIPMENT:: None. PRIMARY CARE PHYSICIAN:: None but a referral has been made to Lyn Wilde of the [facility]. POTENTIAL DISCHARGE NEEDS:: Follow up appointment with PCP and outpatient ultrasound. PATIENT/FAMILY EDUCATION NEEDS:: Discharge instructions, limitations, follow up plan of care, including Ask Me Three and self-management. ANTICIPATED BARRIERS TO DISCHARGE:: None. TRANSPORTATION:: Via private vehicle with family. PLAN:: Molly will be discharged home when medically cleared by provider. She will follow up with her PCP and discharge plan of care as directed. She will be driven home by family via private vehicle when ready. CM will continue to follow.
[2020-12-12] MEDS: Senna TAB 1 TAB PO (10:28)
[2020-12-12] MEDS: Docusate Sodium 100 MG CAP PO (10:28)
--- NOTE | 2020-12-12 11:07 | PHA.REVIEW ---
Pharmacy Admission Review - Admission Clinical Review (Last Reviewed 12/12/20 @ 02:06 by Justin Mariscal MD) Pyelonephritis (Acute) No Known Allergies Allergy (Unverified 12/10/20 02:13) Height 5 ft 6 in Weight 90.7 kg - Renal Dosing Renal Dosing: BUN 8 mg/dL (7-18) 12/12/20 06:12 Creatinine 0.9 mg/dL (0.55-1.02) 12/12/20 06:12 Medications needing adjustments: Reviewed - Anticoagulation Anticoagulation: Hgb 13.0 g/dL (11.2-15.7) 12/12/20 06:12 Hct 38.4 % (36.0-46.0) 12/12/20 06:12 Plt Count 391 10^3/uL (130-400) 12/12/20 06:12 Creatinine 0.9 mg/dL (0.55-1.02) 12/12/20 06:12 DVT Prohphylaxis: N/A Therapeutic Anticoagulation: N/A - Opiate Usage Evaluate Pain Scale/Pains Meds: Reviewed Scheduled Bowel Reg ordered if on Opiates?: Yes - Relevant Labs Sodium 137 mmol/L (136-145) 12/12/20 06:12 Potassium 3.6 mmol/L (3.5-5.1) 12/12/20 06:12 Chloride 101 mmol/L (98-107) 12/12/20 06:12 Electrolytes, C-Reactive P, ESR: Reviewed - DM Control DM Control: Glucose 106 mg/dL (74-106) 12/12/20 06:12 Insulin Dosing: N/A - Heart Failure/WA EF%, FANNY's, B-Blockers, Diuretics: N/A - BP Control BP Control: Blood Pressure 104/68 Blood Pressure 110/69 Blood Pressure 110/69 Blood Pressure 103/69 If elevated: N/A - Qtc Review If Elevated: N/A - IV to PO Switch IV Medications: Reviewed (IV currently due to nausea and vomiting - possible oral cipro that was started initially wasn't absorbed) - Home Meds Home Med List reviewed: Reviewed - Current meds Current Medication Order Review: Reviewed - Comments Comments/Follow Ups: urine culture from 12/10 grew pansensitive e. coli
--- NOTE | 2020-12-12 11:36 | W.PM.PROGNOT ---
Date of Service Date of service: 12/12/20 Time of Service: 11:37 Subjective Subjective Interval history since last seen: wants to eat Objective Last Vital Signs Temp 36.9 C 12/12/20 07:27 Pulse 79 12/12/20 07:27 Resp 17 12/12/20 07:27 BP 104/68 12/12/20 07:27 Pulse Ox 95 12/12/20 07:27 Laboratory Results - last 24 hr 12/12/20 12/12/20 12/12/20 01:00 01:00 01:00 WBC 17.09 H RBC 4.49 Hgb 13.7 Hct 40.4 MCV 90.0 MCH 30.5 MCHC 33.9 RDW 13.3 Plt Count 386 MPV 9.0 Immature Gran % 0.3 Neutrophils % 69.2 Lymphocytes % 16.6 Monocytes % 13.1 Eosinophils % 0.4 Basophils % 0.4 Nucleated RBC % 0 Absolute Neutrophils 11.83 H Absolute Lymphocytes 2.84 Absolute Monocytes 2.24 H Absolute Eosinophils 0.07 Absolute Basophils 0.07 RBC Morphology Normal VBG Lactate 1.7 H Sodium 135 L Potassium 3.3 L Chloride 98 Carbon Dioxide 20.7 L Anion Gap 16.3 H BUN 7 Creatinine 1.0 Estimated GFR/1.73 m2 >= 60.00 Glucose 104 Calcium 9.0 COVID-19 Source 12/12/20 12/12/20 12/12/20 02:00 06:12 06:12 WBC 13.63 H RBC 4.18 Hgb 13.0 Hct 38.4 MCV 91.9 MCH 31.1 MCHC 33.9 RDW 13.3 Plt Count 391 MPV 9.3 Immature Gran % Neutrophils % Lymphocytes % Monocytes % Eosinophils % Basophils % Nucleated RBC % Absolute Neutrophils Absolute Lymphocytes Absolute Monocytes Absolute Eosinophils Absolute Basophils RBC Morphology VBG Lactate Sodium 137 Potassium 3.6 Chloride 101 Carbon Dioxide 25.8 Anion Gap 10.2 BUN 8 Creatinine 0.9 Estimated GFR/1.73 m2 >= 60.00 Glucose 106 Calcium 8.7 COVID-19 Source Nasal/nares
[2020-12-12 11:39] LABS: COVID-19 PCR Negative (Negative)
[2020-12-12] MEDS: Normal Saline Flush 10 ML SYR IVP (11:43)
[2020-12-12] MEDS: Bisacodyl 5 MG TABEC PO (13:08)
--- NOTE | 2020-12-12 13:27 | DSE_ITS ---
Date of service: 12/12/20 Time of Service: 13:27 DS: Diagnosis Discharge Diagnosis (1) Pyelonephritis: Status: Acute Discharge Plan Disposition Patient Disposition: HOME Condition: Improving Discharge Details Reason For Visit: PYELONEPHRITIS Admit Date/Time: 12/12/20 02:15 Admit Provider: Justin Mariscal Attending Provider: Justin Mariscal Primary Care Provider: None,None Hospital Course Hospital Course: Molly Meadows is a very pleasant, otherwise healthy, 35 year old female who had pyelonephritis about 2 months ago and was treated with keflex. She returned to the ED yesterday with left-sided abdominal and back pain. She had a repeat CT scan as her symptoms were on the opposite side and there was previous concern for possible recently passed stone on her CT [address] yesterday showed: HMild dilatation of the left renal collecting system and periureteral stranding. No radiopaque stone is seen. This may represent a recently passed stone. Noncalcified stone, inflammation or infection cannot be excluded. Her UA showed moderate blood, small leukocyte esterase, >50 WBC, no nitrites. She was suspected to have pyelonephritis and was discharged home on Cipro. She returned to the ED early this morning with recurrent pain and vomiting. She had leukocytosis to 17,000. She was admitted to the hospitalist service. A renal ultrasound was ordered for this morning, but was not available. Today, she is feeling better. She has only mild pain which is relieved by ibuprofen. She denies dysuria, hematuria or any other signs of UTI. She is eating and drinking and tolerating her diet. Her urine culture grew pansensitive e-coli. She received Ceftraixone while in the hospital. She alsp reports con stipation. She was given bowel medications. She is discharged home on Augmentin 875mg x14 days, this may help with constipation as well. An outpatient renal ultrasound is ordered. She is advised to follow up with her PCP next week. She did not have a PCP prior to her ED visit, but the career services representative sent a referral to [facility]. Home Meds and New Rx's Prescriptions: New amoxicillin-pot clavulanate [Augmentin] 875-125 mg tablet 1 tab PO BID Qty: 28 RF: 0 Discontinued ciprofloxacin HCl 500 mg tablet 500 mg PO BID Qty: 14 RF: 0 Discharge Instructions Instructions: Kidney Infection (DC) Additional Instructions: An ultrasound of your kidneys has been ordered, the Radiology department will contact you to schedule it. You have been referred to [facility] for Primary Care. Call Monday to set up an appointment for 1-2 weeks. Your antibiotics might help the constipation. You may use dulcolax orally or suppository at home if your bowels do not move. You can also use smooth move tea (found in the grocery store, herbal tea isle). If you become febrile, have increased pain, vomiting, etc, return to the ED. Take care! Stand Alone Forms: Nursing Discharge Form Activity:: Activity as Tolerated Equipment/Supplies:: No Equipment Needed Diet:: As Tolerated Discharge Orders Discharge Orders: Discharge Order (Routine); Ordered 12/12/20 Ordered By: Celeste Shi Other Ambulatory Orders: US abdomen & renal (Routine) Location: None Selected Ordered By: Celeste Shi DS: Summary Time Spent with Patient providing and/or coordinating discharge services: Greater than 30 minutes Status at Discharge Functional status at discharge: independent ambulation Overall status at discharge: patient is progressing back to baseline Mental Status: mental status grossly normal Speech and Movement: speech and movement normal Mood: congruent mood Affect: normal affect Exam Narrative Exam Narrative: General: well nourished, well-appearing 35 year old female, sitting up in bed, awake and alert, in NAD. HEENT: normocephalic, atraumatic, pupils equal and round, makes good eye contact, mucous membranes moist. Neck: supple, no JVD. Cardiovascular: heart sounds regular, no murmur appreciated, nontachycardic. Respiratory: respirations appear even and unlabored, lung sounds clear throughout. GI: +BS, abdomen soft, mildly tender on palpation of the left side, nondistended. Extremities: no edema, moves all 4 extremities freely. Psych Mental Status: mental status grossly normal Speech and Movement: speech and movement normal Mood: congruent mood Affect: normal affect DS: Data Vitals/I&O Vitals and I&O: Vital Signs Temperature 36.9 C 12/12/20 07:27 Temperature Source Temporal Artery Scan 12/12/20 07:27 Pulse 79 12/12/20 07:27 Pulse Rhythm Regular 12/12/20 07:44 Respiratory Rate 17 12/12/20 07:27 Respiratory Effort Non-Labored 12/12/20 07:44 Respiratory Depth Normal 12/12/20 07:44 Respiratory Pattern Normal 12/12/20 07:44 Blood Pressure 104/68 12/12/20 07:27 Blood Pressure Position Supine 12/12/20 00:34 Pulse Oximetry 95 12/12/20 07:27 Oxygen Delivery Method Room Air 12/12/20 07:27 Oxygen Flow Rate 0 12/12/20 07:27 Pain Level 0 12/12/20 12:39 Comment 12/12/20 11:39 Intake & Output 12/11/20 12/12/20 12/12/20 23:59 11:59 23:59 Intake Total 3320 / 3560 240 / 3560 Output Total 450 / 700 250 / 700 Balance 2870 / 2860 -10 / 2860 Weight 90.7 kg Intake: IV 2049 / 2049 Oral 1270 / 1510 240 / 1510 Output: Urine 450 / 700 250 / 700 Other: Urine Color Straw Straw Urine Appearance Clear Clear Urine Odor Normal Normal Comment Void x1 in the toilet. Void x1 in the toilet. Voiding Methods Toilet Toilet Data Completed and Pending Completed studies during hospitalization [Text1]: Renal CT: 12/10 IMPRESSION: Mild dilatation of the left renal collecting system and periureteral stranding. No radiopaque stone is seen. This may represent a recently passed stone. Noncalcified stone, inflammation or infection cannot be excluded.Please jan elate clinically. Urine Culture Final 12/12/20-720 Day 1 Result ISOLATES BELOW ISOLATE 1 COLONY COUNT >100,000 COLONIES/ML ISOLATE 1 APPEARANCE Gram Negative Junior ISOLATE 1 ACTION ID AND SUSCEPTIBILITY TO FOLLOW Day 2 Result ISOLATES BELOW ISOLATE 1 COLONY COUNT >100,000 COLONIES/ML ISOLATE 1 APPEARANCE Gram Negative Junior Organism 1 Escherichia coli COLONY COUNT >100,000 COLONIES/ML Esch coli RESULT Ampicillin S Ampicillin/Sulbactam S Cefazolin S Ceftazidime S CEFTRIAXONE S Ciprofloxacin S Gentamicin S Nitrofurantoin S Imipenem S Levofloxacin S Tobramycin S Trimethoprim/Sulfamethoxazole S Piperacillin/Tazobactam S Labs on day of discharge: Labs from last 24 hours 12/12/20 12/12/20 12/12/20 06:12 06:12 02:00 WBC 13.63 H RBC 4.18 Hgb 13.0 Hct 38.4 MCV 91.9 MCH 31.1 MCHC 33.9 RDW 13.3 Plt Count 391 MPV 9.3 Immature Gran % Neutrophils % Lymphocytes % Monocytes % Eosinophils % Basophils % Nucleated RBC % Absolute Neutrophils Absolute Lymphocytes Absolute Monocytes Absolute Eosinophils Absolute Basophils RBC Morphology VBG Lactate Sodium 137 Potassium 3.6 Chloride 101 Carbon Dioxide 25.8 Anion Gap 10.2 BUN 8 Creatinine 0.9 Estimated GFR/1.73 m2 >= 60.00 Glucose 106 Calcium 8.7 COVID-19 Source Nasal/nares SARS-CoV-2 (PCR) Negative 12/12/20 12/12/20 12/12/20 01:00 01:00 01:00 WBC 17.09 H RBC 4.49 Hgb 13.7 Hct 40.4 MCV 90.0 MCH 30.5 MCHC 33.9 RDW 13.3 Plt Count 386 MPV 9.0 Immature Gran % 0.3 Neutrophils % 69.2 Lymphocytes % 16.6 Monocytes % 13.1 Eosinophils % 0.4 Basophils % 0.4 Nucleated RBC % 0 Absolute Neutrophils 11.83 H Absolute Lymphocytes 2.84 Absolute Monocytes 2.24 H Absolute Eosinophils 0.07 Absolute Basophils 0.07 RBC Morphology Normal VBG Lactate 1.7 H Sodium 135 L Potassium 3.3 L Chloride 98 Carbon Dioxide 20.7 L Anion Gap 16.3 H BUN 7 Creatinine 1.0 Estimated GFR/1.73 m2 >= 60.00 Glucose 104 Calcium 9.0 COVID-19 Source SARS-CoV-2 (PCR) [facility] Medical History No significant past medical history Surgical History History of appendectomy Social History Smoking/Tobacco Use Status: Current every day Tobacco Type: cigarettes Smoking risk assessment performed?: Yes Alcohol Intake: current Alcohol Intake frequency: 0-2 drinks per day Drug use: Occasionally Substance use type: marijuana Do you feel safe at home: Yes Do you feel safe in your relationship?: Yes
--- NOTE | 2020-12-12 13:44 | PDOC.CMDIS ---
- If Service Date Differs Date of service: 12/12/20 Time of Service: 13:44 LACE Index Scoring Tool - Questions: Length of Stay (in days): 1 Acuity (Admit via E.D.?): Yes E.D. Visits: 3 - Answers: Total Score: 7 Risk of Readmission: Low Risk Care Management Discharge Reason for Hospitalization: Pyelonephritis. Discharge Plan: Molly is discharged home. She will follow up with her PCP, urologist, and discharge plan of care as directed. She is being driven home by family via private vehicle. Patient/Family Education Needs: Discharge instructions, limitations, and follow up plan of care, including Ask Me Three and self management.
== END 2020-12-12 14:41 | disposition home or self-care (01) ==
LOC: ER 02:28 → MS 02:51
PROVIDERS: Admitting Provider General Practice; Emergency Provider Emergency Medicine; Visit Provider General Practice
DX: N10 Acute pyelonephritis (principal); F17.210 Nicotine dependence, cigarettes, uncomplicated; B96.20 Unspecified Escherichia coli [E. coli] as the cause of diseases classified elsewhere
CPT/HCPCS: 36415; 80048; 85027; 96361; 96365; 96367; 96375; 99222; 99239; 99285; 83605; 85025; 99219; 99284; G0378; J0696; J1885; J2405; J3480

== ENCOUNTER 2020-12-16 02:07 | Outpatient (CLI) | payer OTHER, SELFPAY ==
--- NOTE | 2020-12-16 | DI.US_ITS ---
EXAM: US RENAL CLINICAL HISTORY: left flank pain. TECHNIQUE: Calabrese scale, color and spectral Doppler were used. COMPARISON: No exams were available for comparison FINDINGS: Renal size in cm: Right: 12.3. Left: 10.3. Echogenicity: Normal. Hydronephrosis: No. Cyst or mass: No. Nephrolithiasis: No. Other findings: None. Bladder:Normal. Ureteral jets: Right: Not visualized on this examination. Left: Not visualized on this examination. Prevoid vol:147 cc Postvoid vol:0 cc Renal color flow: Symmetric and within normal limits. IMPRESSION: No evidence of nephrolithiasis or hydronephrosis. DATA REPOSITORY:
== END 2020-12-16 02:27 ==
PROVIDERS: PCP Internal Medicine; Visit Provider General Practice
DX: R10.9 Unspecified abdominal pain (principal)
CPT/HCPCS: 76770

== ENCOUNTER 2022-09-04 16:33 | Emergency (ER) | payer OTHER, SELFPAY ==
[2022-09-04] VITALS (13 sets, daily range): BP systolic 107–135; BP diastolic 64–73; PULSE 79–95; RESP 13–26; TEMP 37.1; O2SAT 93–98
--- NOTE | 2022-09-04 16:30 | RT.EKG_ITS ---
APPROVED REPORT Exam: Resting ECG Reason for Exam: Palpitations Patient Location: E HR:86 bpm ECG Measurements Heart Rate 86 AXIS WI 170 P 52 QRSd 93 QRS 36 QT 392 T 28 QTc 469 Conclusion Sinus rhythm...normal P axis, V-rate 60- 99
--- OUTSIDE RECORDS SUMMARY | 2022-09-04 16:39 | XMS_ITS | Encounter Summary ---
:1985 Author Organization [facility] Address [address] [place] [address] Care Team Providers Name Role Phone Unavailable Primary Care Provider Unavailable Encounter Details Date Type Department Care Team Description 04/17/2007 Results Only [facility] - Korina Castillo, Chr istopher, conversion DO [address] [facility] [address] [facility] [address] [place] [address] [place] [address] (Wo rk) Social History Tobacco Use Types Packs/Day Years Used Date Smoking Tobacco: Never Assessed Sex Assigned at Date Recorded Not on file documented as of this encounter Plan of Treatment Not on filedocumented as of this encounter Procedures Procedure Name Priority Date/Time Associated Diagnosis Comme [facility] SURGICAL PATHOLOGY Routine 04/17/2007 0:00 EDT Re sults for this procedure are i n the results section. documented in this encounter Results SURGICAL PATHOLOGY (04/17/2007 0:00 EDT) Component Value Ref Test Analysis Performed At [facility] Method Time Signature Pathology SURGICAL PATHOLOGY REPORT RADAH SEVERINO Report: Reports generated via electronic interface contain origina l data; SANTHOSH WALTON however they are lacking the format of the original report. Caution should be taken when reading/interpreting unformatte d reports. Name: ? JANES MEADOWS ? Accession #: ? [id number] ? : ? 1985 (Age: 21) ??F ? Collect Date: ? 04/17/2007 ? Location: ? [facility] ? Receive Date: ? 04/18/2007 ? Provider: RAGHAVENDRA CASTILLO DO Copy to: FABIOLA STEWART MD ? Final Pathologic Diagnosis: ? Appendix, appendectomy: - Acute suppurative appendicitis and periappendicitis. Document reviewed and electronically signed by: Mariya Collins MD Report ??Date: 04/23/2007 15:15 By the signature above, the attending physician certifies th at he/she has personally conducted a gross and/or microscopic examin ation of the described specimens and rendered or confirmed the above diagnosis. Specimen(s) Received: ? Appendix Clinical History: ? Appendicitis Gross Description: ? Received in formalin labelled Chayer and appendi x is a vermiform appendix measuring 9.2 cm in length, averages 0.8 cm in diameter and is surfaced by a cabrera-red diffusely hyperemic serosa. There is a st apled margin along the proximal aspect which is inked black for identificatio n purposes. There is a minimal amount of attached m esoappendix. Upon sectioning, the lumen ranges from 0.2 to 0.5 cm in diameter an d contains a moderate amount of brown friable fecal material. The wall averages 0.2 cm in thickness with n o discrete nodules nor perforations grossly identified. The specimen is serially se ctioned and volunteer patient representative sections are submitted in one cassette which includes inked proximal margin, one cross s ection and one-half of the distal tip. /madeleine End of Report Specimen (Source) Anatomical Collection Method Collection Time Re ceived Time Location / / Volume Laterality 04/17/2007 04/18/2007 0:53 EDT Raghavendra Castillo DO PATHOLOGY ORDERABLES Performing Organization Address City/State/ZIP Code Phon e Number [facility] [address] [place] [address] SERVICES [facility] [address] [place] [address] documented in this encounter Visit Diagnoses Not on filedocumented in this encounter
--- OUTSIDE RECORDS SUMMARY | 2022-09-04 16:39 | XMS_ITS | Encounter Summary ---
:[address] [facility] Address [address] [place] [address] Care Team Providers Name Role Phone Steve Espinoza MD Primary Care Provider Unavailable Encounter Details Date Type Department Care Team Description 06/24/2020 Lab Requisition [facility] Outr Resulting Lab, Pathology & Laboratory Provider [facility] [address] [place], [place] [id number] Social History Tobacco Use Types Packs/Day Years Used Date Smoking Tobacco: Never Assessed Sex Assigned at Date Recorded Not on file documented as of this encounter Plan of Treatment Not on filedocumented as of this encounter Procedures Procedure Name Priority Date/Time Associated Diagnosis Comme nts HOLD SST Today 06/24/2020 10:30 Results for this EDT procedure are i n the results section. HOLD SST Today 06/24/2020 10:30 Results for this EDT procedure are i n the results section. HOLD SST Today 06/24/2020 10:30 Results for this EDT procedure are i n the results section. HOLD SST Today 06/24/2020 10:30 Results for this EDT procedure are i n the results section. MEASLES IGG AB Today 06/24/2020 10:30 Results f or this EDT procedure are i n the results section. RUBELLA IGG Today 06/24/2020 10:30 Results for this ANTIBODY EDT procedure are i n the results section. HEPATITIS B SURFACE Today 06/24/2020 10:30 Resu lts for this ANTIBODY EDT procedure are i n the results section. VARICELLA IGG Today 06/24/2020 10:30 Results fo r this ANTIBODY EDT procedure are i n the results section. MUMPS ANTIBODY IGG Today 06/24/2020 10:30 Resul ts for this EDT procedure are i n the results section. documented in this encounter Results HOLD SST (06/24/2020 10:30 EDT) athologist Signature Hold Hold 06/24/2020 [facility] 18:01 EDT [facility] Specimen Anatomical Collection Method Collection Time Receive d Time (Source) Location / / Volume Laterality Blood VENOUS BLOOD / 06/24/2020 10:30 0 Unknown EDT 16:55 EDT Provider Outr Resulting Lab LAB INFO SERVICE AND SUPPO RT & PHONE RESULT Performing Organization Address City/State/ZIP Code Phon e Number [facility] [address] [place] [address] SERVICES HOLD SST (06/24/2020 10:30 EDT) athologist Signature Hold Hold 06/24/2020 [facility] 18:01 EDT [facility] Specimen Anatomical Collection Method Collection Time Receive d Time (Source) Location / / Volume Laterality Blood VENOUS BLOOD / 06/24/2020 10:30 0 Unknown EDT 16:55 EDT Provider Outr Resulting Lab LAB INFO SERVICE AND SUPPO RT & PHONE RESULT Performing Organization Address City/State/ZIP Code Phon e Number [facility] [address] [place] [address] SERVICES HOLD SST (06/24/2020 10:30 EDT) athologist Signature Hold Hold 06/24/2020 [facility] 18:01 EDT [facility] Specimen Anatomical Collection Method Collection Time Receive d Time (Source) Location / / Volume Laterality Blood VENOUS BLOOD / 06/24/2020 10:30 0 Unknown EDT 16:55 EDT Provider Outr Resulting Lab LAB INFO SERVICE AND SUPPO RT & PHONE RESULT Performing Organization Address City/State/ZIP Code Phon e Number [facility] [address] [place] [address] SERVICES HOLD SST (06/24/2020 10:30 EDT) athologist Signature Hold Hold 06/24/2020 [facility] 18:01 EDT [facility] Specimen Anatomical Collection Method Collection Time Receive d Time (Source) Location / / Volume Laterality Blood VENOUS BLOOD / 06/24/2020 10:30 0 Unknown EDT 16:55 EDT Provider Outr Resulting Lab LAB INFO SERVICE AND SUPPO RT & PHONE RESULT Performing Organization Address [facility]/ZIP Code Phon e Number [facility] [address] [place] [address] SERVICES HEPATITIS B SURFACE ANTIBODY (06/24/2020 10:30 EDT) Analysis Performed At [facility] Signature Hep B Surface Ab, 961.1 See Note 06/25/2020 [facility] Quantitative mIU/mL 8:57 EDT [facility] Comment: Reference Range for Hep B Surface Ab, Qu ant: Positive: >= 10.0 mIU/mL Negative: ??< 10.0 mIU/mL Patient is presumed to be immune to infe ction with Hepatitis B Virus. Hep B Surface Ab, Positive See Note 06/25/2020 8:57 EDT [facility] Qualitative LABORATORY SERVICE S Comment: Reference Range for Hep B Surface Ab, Qu al: Unvaccinated: ??Negative Vaccinated: ??Positive Specimen Anatomical Collection Method Collection Time Receive d Time (Source) Location / / Volume Laterality Blood VENOUS BLOOD / 06/24/2020 10:30 0 Unknown EDT 16:55 EDT Provider Outr Resulting Lab CHEMISTRY & BLOOD GAS ORDE RABLES Performing Organization Address [facility] Code Phon e Number [facility] [address] [place] [address] SERVICES MEASLES IGG AB (06/24/2020 10:30 EDT) Analysis Performed At [facility] Signature Measles IgG Ab Positive See Note 06/25/2020 [facility] 13:31 EDT [facility] Comment: Presence of detectable measles virus IgG antibodies. Specimen Anatomical Collection Method Collection Time Receive d Time (Source) Location / / Volume Laterality Blood VENOUS BLOOD / 06/24/2020 10:30 0 Unknown EDT 16:55 EDT Provider Outr Resulting Lab IMMUNOLOGY AND SEROLOGY OR DERABLES Performing Organization Address City/[facility]/ZIP Code Phon e Number [facility] [address] [place] [address] SERVICES VARICELLA IGG ANTIBODY (06/24/2020 10:30 EDT) Analysis Performed At Patho logist Time Signature Varicella IgG Positive See Note 06/25/2020 [facility] 13:30 EDT [facility] Comment: Presence of detectable Varicell a Zoster virus IgG antibodies. Specimen Anatomical Collection Method Collection Time Receive d Time (Source) Location / / Volume Laterality Blood VENOUS BLOOD / 06/24/2020 10:30 0 Unknown EDT 16:55 EDT Provider Outr Resulting Lab IMMUNOLOGY AND SEROLOGY OR DERABLES Performing Organization Address City/[facility]/ZIP Code Phon e Number [facility] [address] [place] [address] SERVICES MUMPS ANTIBODY IGG (06/24/2020 10:30 EDT) Analysis Performed At [facility] Signature Mumps Antibody Positive See Note 06/25/2020 [facility] 13:31 EDT [facility] Comment: Presence of detectable mumps vi stephanie IgG antibodies. Specimen Anatomical Collection Method Collection Time Receive d Time (Source) Location / / Volume Laterality Blood VENOUS BLOOD / 06/24/2020 10:30 0 Unknown EDT 16:55 EDT Provider Outr Resulting Lab IMMUNOLOGY AND SEROLOGY OR DERABLES Performing Organization Address City/[facility] Phon e Number [facility] [address] [place] [address] SERVICES RUBELLA IGG ANTIBODY (06/24/2020 10:30 EDT) Analysis Performed At [facility] Signature Rubella IgG Ab Positive See Note 06/25/2020 [facility] 13:32 EDT [facility] Comment: Positive for IgG antibodies to Rubella virus. Specimen Anatomical Collection Method Collection Time Receive d Time (Source) Location / / Volume Laterality Blood VENOUS BLOOD / 06/24/2020 10:30 0 Unknown EDT 16:55 EDT Provider Outr Resulting Lab CHEMISTRY & BLOOD GAS ORDE RABFELICITY Performing Organization Address City/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
--- OUTSIDE RECORDS SUMMARY | 2022-09-04 16:39 | XMS_ITS | Encounter Summary ---
:1985 Author Organization [facility] Address [address] [place] [address] Care Team Providers Name Role Phone Steve Espinoza MD Primary Care Provider Unavailable Encounter Details Date Type Department Care Team Description 06/24/2020 Lab Requisition [facility] Outr Resulting Lab, Pathology & Laboratory Provider [facility] [address] [place], [place] [id number] Social History Tobacco Use Types Packs/Day Years Used Date Smoking Tobacco: Never Assessed Sex Assigned at Date Recorded Not on file documented as of this encounter Plan of Treatment Not on filedocumented as of this encounter Procedures Procedure Name Priority Date/Time Associated Comments Diagnosis QUANTIFERON TB GOLD Routine 06/24/2020 10:30 Resu lts for this PLUS EDT procedure are i n the results section. documented in this encounter Results QUANTIFERON TB GOLD PLUS (06/24/2020 10:30 EDT) [facility] [employer] Method Time Signature Quantiferon Negative Negative 06/26/2020 [facility] Interpretation 14:48 EDT [facility] Comment: No interferon-gamma response to M. tuber culosis antigens was detected. ??Infection with M. tuberculosis is unlikely. A single negative result does not exclude infection with M. tuberculosis. ??In patien ts at high risk for M. tuberculosis infe ction, a second test should be considered in accordance with the 2017 ATS/IDSA/CDC Clinical Practice Guidelines for Diagnosis of Tuberculosis in Adults and Childr en. [Carlos YOUSSEF et. al. Clin. Infect. Dis. 2017:64 (2) ??: 111-115]. Results were obtained with the [employer] antiFERON TB Gold Plus CORI. TB1 Ag minus Nil 0.00 IU/ml 06/26/2020 14:48 EDT [facility] TB2 Ag minus Nil 0.00 IU/mL 06/26/2020 14:48 EDT [facility] Specimen Anatomical Collection Method Collection Time Receive d Time (Source) Location / / Volume Laterality Blood VENOUS BLOOD / 06/24/2020 10:30 0 Unknown EDT 17:22 EDT Narrative [facility] - 06/26/2020 14:48 EDT Results were obtained with the [employer] Qu antiFERON-TB Gold Plus CORI. Provider Outr Resulting Lab CHEMISTRY & BLOOD GAS [facility] BOY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
--- OUTSIDE RECORDS SUMMARY | 2022-09-04 16:39 | XMS_ITS | Clinical Summary ---
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
--- NOTE | 2022-09-04 16:51 | ED.GENADUL_ITS ---
Discharge Plan Disposition Patient Disposition: Home Condition: Stable Discharge Details Clinical Impression: Palpitations Primary Care Provider: Jr Brito ED Provider: Anusha Berman Discharge Instructions Instructions: Heart Palpitations (ED) Additional Instructions: At this time your heart rate is normal sinus rhythm. You have no retained foreign body noted on exam. Labs are within normal limits. Follow up with primary care provider in 3-5 days. Return to ED sooner if any worsening or concerns. Increase oral fluids. Referrals: Jr Brito MD [Primary Care Provider] - 1 week Medical Decision Making 36-year-old female presents to the ER with a chief complaint of palpitations and heart pounding which began around 330 she is smoking some marijuana. She does report daily marijuana use. She also is concerned that she may have a tampon stuck in her vaginal canal. She reports may have been in since last night. EKG was reviewed by Dr. Peñaloza ER attending, normal sinus rhythm, no old EKG available with review. 1744: Pelvic exam performed with Ronel RN as witness. Patient tolerated well. No foreign body present. CBC within normal limits white blood cell count slightly elevated 11.57, sodium 135 initial troponin less than 50. Awaiting urinalysis and UDS. UA largely within normal limits UDS positive for THC March discharged home discussed tricked return instructions, verbalized understanding. This text was generated using [employer] dictation system, please disregard any oddities of phrase or misspellings. Lab Data Lab results reviewed: Yes I reviewed the patient's lab results. Labs: Laboratory Tests Range/Units 09/04/22 09/04/22 09/04/22 17:05 17:05 17:51 WBC (4.4-10.8) 10^3/uL 11.57 H RBC (3.93-5.22) 10^6/uL 4.41 Hgb (11.2-15.7) g/dL 13.5 Hct (36.0-46.0) % 40.9 MCV (80-95) fL 93 MCH (27.0-33.0) pg 30.6 MCHC (32.0-36.0) % 33.0 RDW (11.7-14.6) % 13.1 Plt Count (130-400) 10^3/uL 396 MPV (8.0-11.0) fL 9.0 Immature Gran % 0.3 Neutrophils % 64.1 Lymphocytes % 27.7 Monocytes % 6.6 Eosinophils % 0.7 Basophils % 0.6 Nucleated RBC % (0.0-0.3) % 0.0 Absolute Neutrophils (1.2-6.7) 10^3/uL 7.42 H Absolute Lymphocytes (1.2-3.4) 10^3/uL 3.20 Absolute Monocytes (0.1-0.8) 10^3/uL 0.76 Absolute Eosinophils (0.0-0.7) 10^3/uL 0.08 Absolute Basophils (0.0-0.2) 10^3/uL 0.07 Sodium (136-145) mmol/L 135 L Potassium (3.5-5.1) mmol/L 3.8 Chloride (98-107) mmol/L 100 Carbon Dioxide (21.0-32.0) mmol/L 27.7 Anion Gap (3-11) mmol/L 7.3 BUN (7-18) mg/dL 12 Creatinine (0.55-1.02) mg/dL 0.9 Est GFR (CKD-EPI 2020) (mL/min/1.73m2) 85.50 Glucose (74-106) mg/dL 97 Calcium (8.5-10.1) mg/dL 9.4 Magnesium (1.8-2.4) mg/dL 1.9 Total Bilirubin (0.2-1.0) mg/dL 0.2 AST (15-37) U/L 21 ALT (14-59) U/L 33 Alkaline Phosphatase (46-116) U/L 113 Troponin I (<or=60) ng/L < 50 Total Protein (6.4-8.2) g/dL 7.8 Albumin (3.4-5.0) g/dL 4.1 Urine Color (Yellow) Urine Clarity (Clear) Urine pH (5-8) Ur Specific Magnolia (1.005-1.025) Urine Protein (Negative) mg/dL Urine Ketones (Negative) mg/dL Urine Blood (Negative) Urine Nitrite (Negative) Urine Bilirubin (Negative) Urine Urobilinogen (Up TO 0.2) EU/dL Ur Leukocyte Esterase (Negative) Urine Glucose (Negative) mg/dL Urine Opiates Screen (Negative) Negative Urine Methadone Screen (Negative) Negative Ur Barbiturates Screen (Negative) Negative Ur Tricyclics Screen (Negative) Negative Ur Amphetamines Screen (Negative) Negative U Benzodiazepines Scrn (Negative) Negative Urine Cocaine Screen (Negative) Negative Ur THC Screen (Negative) Positive A Range/Units 09/04/22 17:51 WBC (4.4-10.8) 10^3/uL RBC (3.93-5.22) 10^6/uL Hgb (11.2-15.7) g/dL Hct (36.0-46.0) % MCV (80-95) fL MCH (27.0-33.0) pg MCHC (32.0-36.0) % RDW (11.7-14.6) % Plt Count (130-400) 10^3/uL MPV (8.0-11.0) fL Immature Gran % Neutrophils % Lymphocytes % Monocytes % Eosinophils % Basophils % Nucleated RBC % (0.0-0.3) % Absolute Neutrophils (1.2-6.7) 10^3/uL Absolute Lymphocytes (1.2-3.4) 10^3/uL Absolute Monocytes (0.1-0.8) 10^3/uL Absolute Eosinophils (0.0-0.7) 10^3/uL Absolute Basophils (0.0-0.2) 10^3/uL Sodium (136-145) mmol/L Potassium (3.5-5.1) mmol/L Chloride (98-107) mmol/L Carbon Dioxide (21.0-32.0) mmol/L Anion Gap (3-11) mmol/L BUN (7-18) mg/dL Creatinine (0.55-1.02) mg/dL Est GFR (CKD-EPI 2020) (mL/min/1.73m2) Glucose (74-106) mg/dL Calcium (8.5-10.1) mg/dL Magnesium (1.8-2.4) mg/dL Total Bilirubin (0.2-1.0) mg/dL AST (15-37) U/L ALT (14-59) U/L Alkaline Phosphatase (46-116) U/L Troponin I (<or=60) ng/L Total Protein (6.4-8.2) g/dL Albumin (3.4-5.0) g/dL Urine Color (Yellow) Yellow Urine Clarity (Clear) Clear Urine pH (5-8) 6.5 Ur Specific Magnolia (1.005-1.025) >= 1.030 H Urine Protein (Negative) mg/dL Negative Urine Ketones (Negative) mg/dL Negative Urine Blood (Negative) Negative Urine Nitrite (Negative) Negative Urine Bilirubin (Negative) Negative Urine Urobilinogen (Up TO 0.2) EU/dL 0.2 Ur Leukocyte Esterase (Negative) Negative Urine Glucose (Negative) mg/dL Negative Urine Opiates Screen (Negative) Urine Methadone Screen (Negative) Ur Barbiturates Screen (Negative) Ur Tricyclics Screen (Negative) Ur Amphetamines Screen (Negative) U Benzodiazepines Scrn (Negative) Urine Cocaine Screen (Negative) Ur THC Screen (Negative) Sign Out No HPI General Mode of arrival: ambulatory . Date/Time Provider Initiated Documentation: 09/04/22 16:33 . Limitations to Documentation: no limitations . Information obtained by: patient, RN notes reviewed and old records reviewed . HPI Narrative: 36-year-old female presents to the ER with a chief complaint of palpitations and heart pounding which began around 330 she is smoking some marijuana. She does report daily marijuana use. She also is concerned that she may have a tampon stuck in her vaginal canal. She reports may have been in since last night. She has a past medical history of pyelonephritis. She denies any alcohol or any other drugs. Denies any nausea vomiting diarrhea, dysuria. Related Data Allergies Allergy/AdvReac Type Severity Reaction Status Date / Time No Known Allergies Allergy Unverified 12/10/20 02:13 General Stated Complaint: Chest Pain POLO: 3 Review of Systems All systems reviewed & are unremarkable except as noted in HPI and below Cardiovascular Cardiovascular: Denies chest pain, Denies radiating jaw, neck or arm pain and Reports palpitations Genitourinary Genitourinary: Reports other (Possible vaginal foreign body) Endocrine Endocrine: Reports palpitations PFSH All Active Problems (Updated 09/04/22 @ 18:47 by Anusha Berman NP) Palpitations (Acute) Pyelonephritis (Acute) Medical History No significant past medical history Surgical History History of appendectomy Social History Smoking/Tobacco Use Status: Current every day Tobacco Type: cigarettes Smoking risk assessment performed?: Yes Alcohol Intake: current Alcohol Intake frequency: 3 or more drinks per day Drug use: Occasionally Substance use type: marijuana Do you feel safe at home: Yes Do you feel safe in your relationship?: Yes Exam Narrative Exam Narrative: Constitutional: Alert and oriented x3. Appears stated age. Normal body habitus. Head: Normocephalic, no trauma. Eyes: Pupils PERRL, Red reflex noted, EOM's intact. Eyelids symmetrical without lesions, discharge, or swelling. ENT: Bilateral TM's WNL, External ear normal to inspection, no mastoid TTP, swelling, or erythema, Nasal turbinates WNL, no nasal discharge. Normal dentition, Posterior pharynx WNL, no exudate. Chest: RRR, Normal S1, S2, distal pulses intact. Resp: Lungs clear to auscultation bilaterally, no wheezes, rales, or rhonchi. Abdomen: Soft, non-distended, Normoactive bowel sounds all 4 quads. Musculoskeletal: Normal gait, 5/5 strength to all four extremities. Skin: No suspicious rashes or lesions. Capillary refill less than 2 sec. Neurologic: Cranial nerves II-XII intact. Alert and oriented x 3. Motor: No deficits noted. Sensory: Intact bilaterally all 4 extremities. Reflexes: DTR's intact bilaterally.. Hematologic/Lymphatic: No ecchymosis, no lymphadenopathy. Course Vital Signs Vital signs: Vital Signs Temperature 37.1 C 09/04/22 16:38 Pulse 89 09/04/22 16:38 Respiratory Rate 20 09/04/22 16:38 Blood Pressure 135/72 09/04/22 16:38 Pulse Oximetry 98 09/04/22 16:38 Temperature 37.1 C 09/04/22 16:38 Temperature Source Tympanic 09/04/22 16:38 Pulse 89 09/04/22 16:38 Respiratory Rate 20 09/04/22 16:48 Respiratory Effort 09/04/22 16:48 Respiratory Depth Normal 09/04/22 16:48 Respiratory Pattern Normal 09/04/22 16:48 Blood Pressure 135/72 09/04/22 16:38 Blood Pressure Position Sitting 09/04/22 16:38 Pulse Oximetry 98 09/04/22 16:38 Oxygen Delivery Method Room Air 09/04/22 16:38 Oxygen Flow Rate 0 09/04/22 16:38 Pain Level 0 09/04/22 16:48 PAWSS Have you Been Recently Intoxicated or Drunk Within the Last 30 days?: No Have you Ever Experienced Previous Episodes of Alcohol Withdrawal?: No Have you ever Experienced Withdrawal Seizures?: No Have you ever Experienced Delirium Tremens(DT)s?: No Have you ever undergone Alcohol Rehabilitation Treatment (i.e, inpt ot outpatient treatment programs)?: No Have you ever Experienced Blackouts?: No Have you ever Combined Alcohol with other Downers within the last 90 days?: No Have you ever Combined Alcohol with any other Substance of Abuse during the last 90 days?: No Positive Blood Alcohol level on Presentation? [PCS.BAL]: No Evidence of Increased Autonomic Activity (i.e. HR>120, tremor, sweating, agitation, nausea)?: No Result: 0
[2022-09-04 17:11] LABS: Abs Immature Grans 0.04 10^3/uL (0.0-0.06); Absolute Basophil Count 0.07 10^3/uL (0.0-0.2); Absolute Eosinophil Count 0.08 10^3/uL (0.0-0.7); Absolute Monocyte Count 0.76 10^3/uL (0.1-0.8); Absolute Neutrophil Count 7.42 10^3/uL (1.2-6.7); Basophils % 0.6; Eosinophils % 0.7; HCT 40.9 % (36.0-46.0); HGB 13.5 g/dL (11.2-15.7); Immature Grans % 0.3; Lymphocytes % 27.7; MCH 30.6 pg (27.0-33.0); MCV 93 fL (80-95); Monocytes % 6.6; Neutrophils % 64.1; Platelet Count 396 10^3/uL (130-400); RBC 4.41 10^6/uL (3.93-5.22); RDW 13.1 % (11.7-14.6); RDW-SD 45.2 fL; WBC 11.57 10^3/uL (4.4-10.8)
[2022-09-04 17:28] LABS: ALT 33 U/L (14-59); AST 21 U/L (15-37); Albumin 4.1 g/dL (3.4-5.0); Alkaline Phosphatase 113 U/L (46-116); Anion Gap 7.3 mmol/L (3-11); BUN 12 mg/dL (7-18); Bilirubin, Total 0.2 mg/dL (0.2-1.0); CO2 27.7 mmol/L (21.0-32.0); CREATININE 0.9 mg/dL (0.55-1.02); Calcium 9.4 mg/dL (8.5-10.1); Chloride 100 mmol/L (98-107); Glucose 97 mg/dL (74-106); Magnesium 1.9 mg/dL (1.8-2.4); Potassium 3.8 mmol/L (3.5-5.1); Sodium 135 mmol/L (136-145); Total Protein 7.8 g/dL (6.4-8.2); Troponin I < 50 ng/L (<or=60)
[2022-09-04 18:01] LABS: Bilirubin Negative (Negative); Blood Negative (Negative); Clarity Clear (Clear); Glucose Negative (Negative); Ketones Negative (Negative); Leukocyte Esterase Negative (Negative); Nitrite Negative (Negative); Specific Gravity >= 1.030 (1.005-1.025); Urobilinogen 0.2 EU/dL (Up TO 0.2); pH 6.5 (5-8)
[2022-09-04 18:19] LABS: *AMPHETAMINES SCREEN URINE Negative (Negative); *BARBITURATES SCREEN URINE Negative (Negative); *BENZODIAZEPINES SCREEN URINE Negative (Negative); Cannabinoids THC Positive (Negative); Cocaine Screen,Urine Negative (Negative); METHADONE URINE SCREEN Negative (Negative); OPIATES URINE SCREEN Negative (Negative)
[2022-09-04 18:20] LABS: Tricyclic Antidepressants Negative (Negative)
== END 2022-09-04 19:00 | disposition home or self-care (01) ==
PROVIDERS: Emergency Provider Registered Nurse Emergency; PCP Internal Medicine
DX: R00.2 Palpitations (principal); F12.20 Cannabis dependence, uncomplicated; D72.829 Elevated white blood cell count, unspecified
CPT/HCPCS: 80053; 80307; 81025; 93005; 99283; 81003; 83735; 84484; 85025; 93010; 99284

== ENCOUNTER 2023-07-03 15:06 | Emergency (ER) | payer OTHER, SELFPAY ==
[2023-07-03 15:12] VITALS: BP 133/84; PULSE 69; TEMP 36.7; O2SAT 100
--- NOTE | 2023-07-03 15:15 | DI.RAD_ITS ---
Exam(s) XR ELBOW RT COMPLETE EXAM: XR ELBOW RT COMPLETE CLINICAL HISTORY: hit elbow. TECHNIQUE: 2D digital imaging was performed. COMPARISON: No exams were available for comparison FINDINGS: 3 views There is no evidence of acute fracture or joint effusion. There is no swelling of the olecranon burs a. Radial head and neck appear intact. Epicondyles unremarkable. No degenerative changes. No radi opaque foreign body. IMPRESSION: No significant osseous findings in the elbow. DATA REPOSITORY: RADIATION DOSE DELIVERED:
--- NOTE | 2023-07-03 16:01 | W.ED.GENAD ---
Discharge Plan Disposition Patient Disposition: Home Condition: Good Discharge Details Clinical Impression: Golfer's elbow, Left tennis elbow, Elbow pain, Overuse injury Primary Care Provider: Jr Brito ED Provider: Ashwini Caceres Discharge Instructions Instructions: Tennis Elbow (ED) Additional Instructions: Your imaging is reassuring here today for no fracture or dislocation. However, your exam is concerning for both golfers elbow and tennis elbow. Please continue with rest, ice, elevation. Tylenol and ibuprofen as needed for discomfort. Please continue with Tylenol and ibuprofen as needed for discomfort. Please take as directed on the packaging. Immobilization of the wrist should greatly help with your discomfort and allow some of this inflammation to decrease. Please continue with the wrist splint until advised otherwise by physical therapy. He may take this off to shower and rest. Referral for physical therapy is attached, please call to schedule appointment. Please call your primary care provider to schedule follow-up appointment in 2 weeks, number listed below. If you develop any new or worsening symptoms please seek care urgently once again. Please try to avoid activities that cause increased discomfort. Stand Alone Forms: Physical Therapy Referral Referrals: Jr Brito MD [Primary Care Provider] - Discharge Data Discharge Date/Time-TO BE ENTERED AT DEPARTURE: 07/03/23 16:46 Medical Decision Making Patient is a pleasant 37 year old female presenting with c/c of right elbow pain that began over a month ago. States pain continues to increase. 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 States that this has caused her to miss a few days of work. Denies numbness/tingling. Has been using NSAID and ice to help with pain with minimal relief. On exam, patient appears nontoxic. She is cradling the right elbow and has ice on it. On exam, patient is neurovascularly intact with 2+ distal pulses, normal axillary median radial nerve testing. She does have full range of motion of the elbow, wrist, hand with 5 out of 5 catalogue and special products manager strength. However, she does have increased pain at both the medial and lateral epicondyle with catalogue and special products manager testing as well as flexion extension of the wrist. Pain is maximal when she is supinating or pronating against resistance both again, at the medial lateral epicondyle. History and exam is most consistent with both golfers and tennis elbow. Will obtain x-ray for further evaluation given the patient's repetitive trauma. FINDINGS: 3 views There is no evidence of acute fracture or joint effusion.? There is no swelling of the olecranon bursa.? Radial head and neck appear intact.? Epicondyles unremarkable.? No degenerative changes.? No radiopaque foreign body. IMPRESSION: No significant osseous findings in the elbow. Discussed these findings with the patient. We discussed diagnosis of golfers elbow and tennis elbow. Put in a wrist splint to help with immobilization and alleviate some tension on these areas. Encouraged rest, ice, elevation. Tylenol and ibuprofen as needed for discomfort. Will refer to physical therapy. Return precautions discussed. Advise follow-up with primary care in 2 weeks for reevaluation. All of her questions and concerns were addressed and she is in agreement this plan. Discussed activities that she should avoid. HPI General Date/Time Provider Initiated Documentation: 07/03/23 15:28. Limitations to Documentation: no limitations. Information obtained by: patient and RN notes reviewed. History of Present Illness 37 year old F presents to the emergency department with the chief complaint of right elbow pain, described as severe, with intensity rated at 9. Quality is described as sharp and constant, and is localized to the upper extremity. Patient proximal and distal. Patient started experiencing this month(s) and it has been constant. Immobilization improves symptom(s), Movement worsens symptoms . Patient notes no other symptoms.. Patient did receive the following treatments prior to arrival, NSAID and cold therapy Related Data Allergies Allergy/AdvReac Type Severity Reaction Status Date / Time No Known Allergies Allergy Unverified 12/10/20 02:13 General Stated Complaint: Orthopedic POLO: 4 Review of Systems Constitutional Constitutional: Reports as per HPI, Denies chills, Denies fever(s) and Denies weakness Cardiovascular Cardiovascular: Reports as per HPI Musculoskeletal Musculoskeletal: Reports as per HPI and Denies tingling Integumentary/Breasts Skin/Breast: Reports as per HPI, Denies rash and Denies wounds Neurologic Neurologic: Reports as per HPI, Denies tingling, Denies paresthesias and Denies weakness PFSH All Active Problems (Updated 07/03/23 @ 16:24 by JOHN Liang) Golfer's elbow (Acute) Left tennis elbow (Acute) Elbow pain (Acute) Overuse injury (Acute) Pyelonephritis (Acute) Medical History No significant past medical history Surgical History History of appendectomy Social History Smoking/Tobacco Use Status: Current every day Tobacco Type: cigarettes Smoking risk assessment performed?: Yes Alcohol Intake: current Alcohol Intake frequency: 3 or more drinks per day Drug use: Occasionally Substance use type: marijuana Do you feel safe at home: Yes Do you feel safe in your relationship?: Yes Exam Const General: cooperative, healthy appearing, comfortable, no acute distress, well developed and well groomed Nutritional Appearance: average body habitus and well nourished Orientation: alert and awake Resp Effort & Inspection: normal respiratory effort, able to speak in complete sentences and no respiratory distress Cardio Rate: regular rate Rhythm: regular rhythm Skin General skin exam: no rashes or lesions noted Lesions: no lesions Rashes: no rashes Trauma: no lacerations or abrasions Neuro General: patient alert and patient awake Cognition: normal cognition Speech: speech normal Gait: normal gait Motor: muscle tone normal throughout Sensory Exam: no sensory deficits noted Extrem Elbow/forearm/wrist images: 1. 2. Patient has pain over the medial and lateral epicondyles primarily. Pain is worse with flexion extension of the wrist, hand catalogue and special products manager and maximal with supination and pronation against resistance. No palpable deformity. No appreciable erythema, warmth, swelling, deformity. Patient is able to flex and extend against resistance with a negative hook test. 2+ distal pulses. Sensation is intact. Axillary nerve testing is intact. Psych Appearance: grossly normal and well kempt Mental Status: mental status grossly normal Speech and Movement: speech and movement normal Course Vital Signs Vital signs: Vital Signs Temperature 36.7 C 07/03/23 15:12 Pulse 69 07/03/23 15:12 Blood Pressure 133/84 07/03/23 15:12 Pulse Oximetry 100 07/03/23 15:12 Temperature 36.7 C 07/03/23 15:12 Temperature Source Temporal Artery Scan 07/03/23 15:12 Pulse 69 07/03/23 15:12 Respiratory Effort Normal, Non-Labored 07/03/23 15:28 Blood Pressure 133/84 07/03/23 15:12 Blood Pressure Position Sitting 07/03/23 15:12 Pulse Oximetry 100 07/03/23 15:12 Oxygen Delivery Method Room Air 07/03/23 15:12 Oxygen Flow Rate 0 07/03/23 15:12 Pain Level 9 07/03/23 15:12
== END 2023-07-03 16:46 | disposition home or self-care (01) ==
PROVIDERS: Emergency Provider Physician Assistant; PCP Internal Medicine
DX: M77.01 Medial epicondylitis, right elbow (principal); M77.11 Lateral epicondylitis, right elbow; F17.210 Nicotine dependence, cigarettes, uncomplicated
CPT/HCPCS: 29125; 99283; 73080; 99282